=== PATIENT | female | born 1970 | race Two or more races ===

== ENCOUNTER → 2016-09-11 | Outpatient (CLI) | payer OTHER ==
--- NOTE | ~2016-09-11 | MY29 ---
[facility] A Service of [facility] RADIOLOGY TEXT RESULTS PATIENT: CARLOS A WOLF LOCATION: [facility] : 68 UNIT #: [id number] AGE: [address]: Eric Messina MD SEX: F ORDER DR: [id number] [facility] [address] [place], [place] [address] [id number] O MR#: [id number] Acc #: [id number] NAME: CARLOS A WOLF : 1970 SEX: F STUDY DATE/TIME: 09/11/2016 12:40 UNIT: [facility] ROOM: STUDY DESCRIPTION: MY YOGI SCREENING W/ CAD BILAT Attending Physician: Eric Messina M.D. Referring Physician: Eric Messina M.D. Ordering Physician: Eric Messina M.D. Primary Care Physician: Eric Messina M.D. MEDICAL IMAGING REPORT This report is preliminary unless electronic signature is present EXAM Digital screening mammogram, 09/11/2016; [facility]. HISTORY 46-year-old woman new baseline. No risk elevation. COMPARISON None. Unknown location. TECHNIQUE Digital imaging of each breast was completed utilizing screening protocol. Review includes FDA-approved CAD device. FINDINGS Breast parenchyma is homogeneously dense resulting in decreased mammographic sensitivity. I see no suspicious mass characteristics. There are faint calcifications bilaterally. I see no suspicious architectural deformity. Given the extreme parenchymal density, consider adding digital breast tomosynthesis to the patient's screening protocol. This could be performed at [facility]. IMPRESSION Benign mammogram. Extremely dense breast parenchyma. Annual screening recommended. Patients over the age of 40 are entered into a reminder system with target due date for the next mammogram. A result letter will also be sent to the patient. BIRADS: 2 Benign findings. [facility] A Service of [facility] RADIOLOGY TEXT RESULTS PATIENT: CARLOS A WOLF LOCATION: [facility] : 68 UNIT #: [id number] AGE: [address]: Eric Messina MD SEX: F ORDER DR: Dictated by... Teddy Martinez M.D. THIS IS AN ELECTRONICALLY VERIFIED REPORT Teddy Martinez M.D. at 09/18/2016 7:12 AM JUSTEN/mauricio TD: 09/11/2016 16:17 JOB #: [id number] MEDICAL IMAGING REPORT Page 1 of 1 COPY
== END | disposition home or self-care (01) ==
LOC: CWCC 09-09 11:15
DX: Z12.31 Encounter for screening mammogram for malignant neoplasm of breast (principal)
CPT/HCPCS: G0202